=== PATIENT | male | born 1985 | race African-American/Black ===

== ENCOUNTER 2016-09-12 02:41 | Emergency (ER) | payer OTHER ==
[~2016-09-12] VITALS: Ht 180.3 cm; Wt 88.9 kg
[2016-09-12] MEDS ORDERED: PREDNISONE 20 M20 MG PO (03:01)
[2016-09-12] MEDS ORDERED: PROAIR HFA8.5 GM INH (03:01)
[2016-09-12 04:08] VITALS: BP 132/77
== END 2016-09-12 04:10 | disposition home or self-care (01) ==
LOC: ER 02:41
DX: J45.901 Unspecified asthma with (acute) exacerbation (principal)